=== PATIENT | female | born 1995 | race Hispanic/Latino ===

== ENCOUNTER 2019-05-13 18:40 | Emergency (ER) | payer SELFPAY ==
[2019-05-13 20:20] LABS: Bilirubin Negative (Negative); Blood, Urine 3+ (Negative); Clarity Clear (Clear); Glucose, Urine (Dipstick) Normal (Negative); Leukocyte Negative Leu/uL (Negative); Nitrite Negative (Negative); Protein, Urine (Dipstick) Negative (Neg-Trace); RBC/HPF 0-3 HPF (0-3); Squamous Epithelial 0-3 HPF (0-3); Urobilinogen Normal mg/dL (Less than 2); WBC/HPF 0-3 HPF (0-3)
[2019-05-13 20:21] LABS: Bacteria/HPF 1+ HPF (None Seen)
[2019-05-13] MEDS ORDERED: Azithromycin 250 MG TAB ONE (21:34)
[2019-05-13] MEDS ORDERED: cefTRIAXone\\ROCEPHIN 250 MG VIAL ONE (21:34)
[2019-05-15 21:37] LABS: Chlamydia by PCR Not Detected (NotDetected); GC by PCR Not Detected (NotDetected)
== END 2019-05-13 22:30 | disposition home or self-care (01) ==
LOC: ERS 18:40
DX: Z20.2 Contact with and (suspected) exposure to infections with a predominantly sexual mode of transmission (principal)
CPT/HCPCS: 81003; 81015; 87480; 87491; 87510; 87591; 87660; 99283; J0696